=== PATIENT | male | born 1970 | race Caucasian/White ===

== ENCOUNTER 2016-04-15 18:54 | Emergency (ER) | payer BC, OTHER ==
[2016-04-15] MEDS ORDERED: OPTIRAY 350 100 ML VIAL HMH IV ONE (18:55)
[2016-04-15] MEDS ORDERED: ALTEPLASE RECOMB 100 MG ONE (19:13)
[2016-04-15] MEDS ORDERED: ONDANSETRON 4 MG VIAL ONE (21:48)
[2016-04-15] MEDS ORDERED: SODIUM CHLORIDE 0.9% 1,000 ML ONE (21:48)
[2016-04-15] MEDS ORDERED: DIPHENHYDRAMINE 50 MG/ML VIAL ONE (22:09)
[2016-04-15] MEDS ORDERED: METOCLOPRAMIDE 10 MG/2 ML VIAL ONE (22:09)
[2016-04-15] MEDS ORDERED: KETOROLAC 30 MG/ML VIAL ONE (22:10)
== END 2016-04-15 20:20 | disposition other institution (70) ==
LOC: ER 18:54
DX: I63.9 Cerebral infarction, unspecified (principal); I10 Essential (primary) hypertension; E11.65 Type 2 diabetes mellitus with hyperglycemia; E66.01 Morbid (severe) obesity due to excess calories; Z68.41 Body mass index [BMI] 40.0-44.9, adult; Z79.84 Long term (current) use of oral hypoglycemic drugs
CPT/HCPCS: 36415; 70450; 70496; 70498; 71010; 80047; 80053; 82553; 84484; 85014; 85025; 85384; 85610; 85730; 93005; 96365